=== PATIENT | male | born 1970 | race Caucasian/White ===

== ENCOUNTER → 2022-01-05 | Day surgery (SDC) | payer OTHER ==
[~2022-01-05] MED LIST: ARTHRITIS PAIN150 GM TOP; BACLOFEN20 MG PO; DULOXETINE HCL60 MG PO; FUROSEMIDE40 MG PO; GABAPENTIN600 MG PO; IBU800 MG PO; LISINOPRIL-HCT1 EACH PO; PERCOCET 10-321 EACH PO; POTASSIUM CHLO20 ME1 PO; PROAIR HFA8.5 GM INH
== END | disposition home or self-care (01) ==
LOC: OR 08:19
DX: M47.816 Spondylosis without myelopathy or radiculopathy, lumbar region (principal); M47.812 Spondylosis without myelopathy or radiculopathy, cervical region; M46.1 Sacroiliitis, not elsewhere classified; G62.9 Polyneuropathy, unspecified; G89.29 Other chronic pain; F11.20 Opioid dependence, uncomplicated; Z79.899 Other long term (current) drug therapy
CPT/HCPCS: 76000; J1040